=== PATIENT | male | born 2000 | race Caucasian/White ===

== ENCOUNTER 2020-12-30 09:39 | Emergency (ER) | payer OTHER ==
[~2020-12-30] VITALS: Ht 180.3 cm; Wt 93.3 kg
[2020-12-30 09:40] VITALS: BP 136/66
[2020-12-30] MEDS ORDERED: IBUP-1022 PO (09:44)
--- NOTE | 2020-12-30 10:14 | REP ---
INDICATION: SHOULDER PAIN COMPARISON: None. TECHNIQUE: Three views left shoulder. FINDINGS: There is no evidence of acute fracture, dislocation, or intrinsic bone disease. IMPRESSION: No fracture or dislocation. <Electronically signed by Devan Howe > 12/30/20 1014
[2020-12-30] MEDS ORDERED: ACETAMINOPHEN 500 MG TAB PO ONE (12:15)
[2020-12-30] MEDS ORDERED: LIDOCAINE 5% (LIDODERM) PATCH TD ONE (12:15)
[2020-12-30] MEDS ORDERED: IBUPROFEN 800 MG TAB PO ONE (12:15)
[2020-12-30] MEDS ORDERED: LIDO5DIS41 TOP (12:16)
[2020-12-30] MEDS ORDERED: **NOTE PATIENT COMMENT** MISC XX SCH (21:00)
== END 2020-12-30 12:42 | disposition home or self-care (01) ==
LOC: M ED 09:39
DX: S43.422A Sprain of left rotator cuff capsule, initial encounter (principal); S46.912A Strain of unspecified muscle, fascia and tendon at shoulder and upper arm level, left arm, initial encounter; X58.XXXA Exposure to other specified factors, initial encounter; Y92.138 Other place on military base as the place of occurrence of the external cause; Y99.1 Military activity; F17.210 Nicotine dependence, cigarettes, uncomplicated